=== PATIENT | female | born 1980 | race Caucasian/White ===

== ENCOUNTER 2016-09-02 08:50 | Day surgery (SDC) | payer MEDICAID ==
[2016-08-31 12:28] LABS: APPEARANCE,URINE SLIGHTLY-CLOUDY; BILIRUBIN,URINE NEGATIVE (NEGATIVE); GLUCOSE, URINE NEGATIVE (NEGATIVE); KETONES,URINE NEGATIVE (NEGATIVE); LEUKOCYTE ESTERASE,URINE NEGATIVE (NEGATIVE); NITRITE,URINE NEGATIVE (NEGATIVE); PROTEIN,URINE NEGATIVE (NEGATIVE); URINE SPECIFIC GRAVITY 1.017
[2016-08-31 12:31] LABS: HEMATOCRIT 40.4 % (36.0-47.0); HEMOGLOBIN 13.7 g/dL (12.0-15.5); HGB HCT DIFFERENCE 0.7; MEAN CORPUSCULAR HEMOGLOBIN 34.3 pg (27.0-33.4); MEAN CORPUSCULAR HGB CONC 33.8 g/dL (32.0-36.0); MEAN CORPUSCULAR VOLUME 102 fl (80-97); RED BLOOD COUNT 3.98 10^6/uL (3.72-5.28); RED CELL DISTRIBUTION WIDTH 12.9 % (11.5-14.0); WHITE BLOOD COUNT 5.4 10^3/uL (4.0-10.5)
--- NOTE | 2016-08-31 21:39 | EKG REPORT ---
SEVERITY:- NORMAL ECG - SINUS RHYTHM : Confirmed by: Torsten Petty 31-Aug-2016 21:37:31
[~2016-09-02 08:50] MED LIST: LACTATED RINGERS 1000 ML IV PRN; LIDOCAINE 0.5% INJ-PF (5 MG/ML) 50 ML SDV SUBCUT PRN
[2016-09-02] MEDS ORDERED: SCOPOLAMINE HYDROBROMIDE 1.5 MG PATCH.TD72 ONE (09:35)
[2016-09-02] MEDS ORDERED: FAMOTIDINE INJ/PF 20 MG/2 ML SDV IV ONE (09:35)
[2016-09-02] MEDS ORDERED: ALBUTEROL SULFATE 0.083% NEB 2.5 MG/3 ML AMPUL NEB PRN (09:36)
[2016-09-02] MEDS ORDERED: ALBUTEROL SULFATE 0.083% NEB 2.5 MG/3 ML AMPUL NEB ONE (09:44)
[2016-09-02] MEDS ORDERED: ONDANSETRON HCL INJ/PF 4 MG/2 ML SDV ONE (10:23)
[2016-09-02] MEDS ORDERED: LIDOCAINE 2% INJ-PF (20 MG/ML) 10 ML AMPUL ONE (10:23)
[2016-09-02] MEDS ORDERED: HYDROMORPHONE HCL INJ/PF 2 MG/ML AMPULE ONE (10:44)
[2016-09-02] MEDS ORDERED: MIDAZOLAM 2 MG/2 ML INJ ONE (10:44)
[2016-09-02] MEDS ORDERED: PROPOFOL INJ 200 MG/20 ML VIAL IV ONE (10:44)
[2016-09-02] MEDS ORDERED: PROMETHAZINE HCL INJ 25 MG/1 ML VIAL IV PRN (11:12)
[2016-09-02] MEDS ORDERED: FENTANYL CITRATE INJ/PF 100 MCG/2 ML AMPUL IV PRN ×3 (11:12)
[2016-09-02] MEDS ORDERED: MEPERIDINE HCL/PF INJ 25 MG/1 ML DISP.SYRIN IV PRN (11:12)
[2016-09-02] MEDS ORDERED: DIPHENHYDRAMINE HCL 50 MG/ML VIAL IV PRN (11:12)
[2016-09-02] MEDS ORDERED: OXYCODONE-ACETAMINOPHEN 5-325 MG TABLET PO PRN ×2 (11:52)
[2016-09-02] MEDS ORDERED: IBUPROFEN 800 MG TABLET PO PRN (11:52)
[2016-09-02] MEDS ORDERED: MORPHINE SULFATE 10 MG/ML INJ IM PRN (11:54)
--- NOTE | 2016-09-02 13:23 | OPERATIVE REPORT E ---
Operative Report NAME: October : 1980 AGE: 35Y DATE OF SURGERY: 09/02/2016 ROOM: PREOPERATIVE DIAGNOSES: Abnormal uterine bleeding and possible retained IUD. POSTOPERATIVE DIAGNOSIS: Abnormal uterine bleeding. PROCEDURE: Hysteroscope with dilation and curettage. SURGEON: CORBY BENITEZ M.D. ANESTHESIA: Dr. Castillo with general. FINDINGS: Benign appearing endometrial cavity with a definite large intramural fibroid compressing into the cavity. The bilateral fallopian tube ostia were patent and normal. Thin normal appearing atrophic endometrium. IUD was not located throughout the procedure. ESTIMATED BLOOD LOSS: 20 mL. SPECIMENS REMOVED: Endometrial curettings. PROCEDURE IN DETAIL: The patient was taken to the operating room, prepared and draped in a normal sterile fashion in the dorsal lithotomy position under sterile conditions. An in-and-out cath was performed of approximately 100 mL of clear urine. A sterile speculum was placed into the vagina and the cervix was prepped with Betadine. The cervix was grasped on the anterior lip with a single-tooth tenaculum. The uterus was sounded to approximately 7 cm. The cervix was then dilated to 8 mm and a MyoSure hysteroscope was introduced without difficulty. The endometrial cavity was carefully surveyed and there were no signs of the IUD. We checked off all angles of the endometrial cavity to check for embedment and there was no evidence of this. The ostia were located and found to be normal appearing. The thin endometrium was noted. The fibroid was the first finding that was noted but it appeared to be normal and smooth. I then removed the hysteroscope and performed a gentle curettage with a Kevorkian curette and removed the specimen off the field. Hysteroscope was reintroduced and the endometrial cavity again had a benign appearance with good hemostasis. All instruments were then removed from the vagina and the patient was taken down from the dorsal lithotomy. The patient tolerated procedure well. Sponge, lap and needle counts were correct times 2. The patient was taken to recovery in stable condition. DICTATING PHYSICIAN: CORBY BENITEZ M.D. [id number] PHY#: [id number] ID: [id number] JOB#: [id number] ACCT: [id number] cc:CORBY BENITEZ M.D. >
[2016-09-02 15:02] VITALS: BP 119/71
== END 2016-09-02 13:15 | disposition home or self-care (01) ==
LOC: OROUT 08:50
PROVIDERS: ATTEND Obstetrics & Gynecology
PROC: 0UDB8ZX Extraction of Endometrium, Via Natural or Artificial Opening Endoscopic, Diagnostic (ICD-10-PCS; principal; 2016-09-02 11:00)
DX: N93.9 Abnormal uterine and vaginal bleeding, unspecified (principal); R10.2 Pelvic and perineal pain; D25.1 Intramural leiomyoma of uterus; I10 Essential (primary) hypertension; D64.9 Anemia, unspecified; F17.210 Nicotine dependence, cigarettes, uncomplicated; Z88.0 Allergy status to penicillin; Z79.899 Other long term (current) drug therapy
CPT/HCPCS: 93005; 36415; 85027; 81025; 81001; 88305 ×2; 93010; 94640; 58558; J2250; J3490 ×2; J1170; J2405; J2704; S0028; 952